=== PATIENT | male | born 1955 | race Caucasian/White ===

== ENCOUNTER 2016-05-26 22:25 | Emergency (ER) | payer OTHER ==
[~2016-05-26] VITALS: Wt 118.2 kg
[~2016-05-26 22:25] MED LIST: ATOR10TA65 PO; ATOR20TA38 PO; FURO-110 PO; HYD25 PO; INSU100V14 SC; INSU100V18 SC; INSU100V23 SC; LAS20 PO; LEVEM SC; NAPR-260 PO; NOV SC; POTA20TA81 PO; POTA20TA96 PO; [UNRECOGNIZED DRUG - CODE] MC
--- NOTE | 2016-05-27 05:47 | ERD ---
ER Documentation Chief Complaint Date/Time DATE: 05/27/16 TIME: 05:46 Chief Complaint "diabetic ulcers on feet", pt. homeless HPI This is a 52-year-old male comes in with complaints of pain in his diabetic foot ulcers. These are chronic ulcers. Denies any new issues. Denies any fevers or chills. Denies any other current problems. ROS All systems reviewed and are negative except as per history of present illness. Medications Home Meds Active Scripts Insulin Regular, Human (Humulin R) 100 Units/Ml Vial, 0 SC SLIDING SCALE AC for 7 Days, VIAL Prov:JUJU SEVERINO MD 07/30/15 Insuln Asp Prt/Insulin Aspart (Novolog Mix 70-30 Vial*) 100 Units/Ml Vial, 13 UNIT SC WITH BREAKFAST DINNE for 7 Days, VIAL Prov:JUJU SEVERINO MD 07/30/15 Insulin Detemir* (Levemir*) 100 U/Ml Vial, 60 UNIT SC DAILY for 7 Days, VIAL Prov:JUJU SEVERINO MD 07/30/15 Potassium Chloride (Klor-Con M20) 20 Meq Tab.prt.sr, 20 MEQ PO DAILY for 7 Days Prov:JUJU SEVERINO MD 07/30/15 Hydrochlorothiazide* (Hydrochlorothiazide*) 25 Mg Tab, 25 MG PO DAILY for 7 Days , #30 TAB Prov:JUJU SEVERINO MD 07/30/15 Furosemide (Lasix) 20 Mg Tab, 20 MG PO DAILY for 7 Days, TAB Prov:JUJU SEVERINO MD 07/30/15 Naproxen* (Naprosyn*) 500 Mg Tablet, 500 MG PO BID Y for PAIN AND/OR INFLAMMATION for 7 Days, #30 TAB Prov:JUJU SEVERINO MD 07/30/15 Atorvastatin Calcium* (Atorvastatin Calcium*) 20 Mg Tablet, 20 MG PO QHS for 7 Days, #30 TAB Prov:JUJU SEVERINO MD 07/30/15 Reported Medications Insulin Regular, Human* (Novolin R*) 100 U/Ml Vial, 0 SC SLIDING SCALE AC, VIAL 150-170=4U 160-200=6U 200-250=8U OVER 300 12U 07/30/15 Insulin Aspart* (Novolog Insulin Vial*) 100 U/Ml Vial, 13 UNIT SC WITH MEALS BEDTIME, VIAL 5/24/16 Insulin Detemir* (Levemir*) 100 U/Ml Vial, 60 UNIT SC DAILY, VIAL 07/30/15 Blood Sugar Diagnostic (ONE TOUCH VERIO) 1 Each Strip, 1 EACH MC TID, STRIP 07/30/15 Potassium Chloride* (Potassium Chloride*) 20 Meq Tablet.er, 20 MEQ PO DAILY, TAB.SA 07/30/15 Naproxen* (Naprosyn*) 500 Mg Tablet, 500 MG PO BID, TAB 07/30/15 Atorvastatin Calcium (Atorvastatin Calcium) 10 Mg Tablet, 10 MG PO QHS, #30 TAB 07/30/15 Furosemide* (Lasix*) 20 Mg Tablet, 20 MG PO DAILY, TAB 07/30/15 Hydrochlorothiazide* (Hydrochlorothiazide*) 25 Mg Tab, 25 MG PO DAILY, #30 TAB 07/30/15 Allergies Allergies: Coded Allergies: No Known Allergy (Unverified , 07/30/15) PMhx/Soc Medical and Surgical Hx: pt denies Surgical Hx History of Surgery: No Anesthesia Reaction: No Hx Neurological Disorder: No Hx Respiratory Disorders: No Hx Cardiac Disorders: Yes (htn,) Hx Psychiatric Problems: No Hx Miscellaneous Medical Probl: Yes (dm) Hx Alcohol Use: No Hx Substance Use: No Hx Tobacco Use: Yes Smoking Status: Current every day smoker Physical Exam Vitals Vital Signs Date Time Temp Pulse Resp B/P Pulse Ox O2 Delivery O2 Flow Rate FiO2 05/27/16 04:51 98.5 94 20 171/89 99 Room Air 05/26/16 22:30 98.5 91 20 167/89 99 Physical Exam Const: [] Head: Atraumatic Eyes: Normal Conjunctiva ENT: Normal External Ears, Nose and Mouth. Neck: Full range of motion..~ No meningismus. Resp: Clear to auscultation bilaterally Cardio: Regular rate and rhythm, no murmurs Abd: Soft, non tender, non distended. Normal bowel sounds Skin: Multiple foot ulcers noted. No purulent drainage. Right greater than left. Back: No midline or flank tenderness Ext: No cyanosis, or edema Neur: Awake and alert Psych: Normal Mood and Affect Procedures/MDM Medical decision-making: Patient with chronic diabetic foot ulcers. We placed on Bactrim. Wounds have been cleaned and dressed. Follow-up with PCP and wound care. Departure Diagnosis: Primary Impression: Diabetic foot ulcer Diabetes mellitus type: other specified (including HAWK) Laterality: bilateral Qualified Code: E13.621 - Diabetic ulcer of both feet associated with other specified diabetes mellitus DAMON GUAJARDO May 27, 2016 05:47
[2016-05-27] MEDS ORDERED: BACTDS PO (05:52)
[2016-05-27 08:50] VITALS: BP 138/70; PULSE 85; RESP 16; TEMP 98.6
== END 2016-05-27 08:00 | disposition home or self-care (01) ==
LOC: E/R 22:25
DX: E13.621 Other specified diabetes mellitus with foot ulcer (principal); I10 Essential (primary) hypertension; F17.210 Nicotine dependence, cigarettes, uncomplicated; L97.519 Non-pressure chronic ulcer of other part of right foot with unspecified severity; L97.529 Non-pressure chronic ulcer of other part of left foot with unspecified severity; Z79.4 Long term (current) use of insulin
CPT/HCPCS: 99283

== ENCOUNTER 2016-07-03 13:37 | Emergency (ER) | payer OTHER ==
[~2016-07-03] VITALS: Wt 91.0 kg
[~2016-07-03 13:37] MED LIST changes: +BACTDS PO
[2016-07-03] MEDS ORDERED: QUET25TA26 PO (16:42)
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
== END 2016-07-03 18:07 | disposition home or self-care (01) ==
LOC: E/R 13:37
DX: F20.9 Schizophrenia, unspecified (principal); I10 Essential (primary) hypertension; E11.9 Type 2 diabetes mellitus without complications; Z79.4 Long term (current) use of insulin; Z87.891 Personal history of nicotine dependence
CPT/HCPCS: 99283